=== PATIENT | male | born 1990 | race Caucasian/White ===

== ENCOUNTER 2023-06-07 15:13 | Emergency (ER) | payer OTHER ==
[2023-06-07] MEDS ORDERED: Lidocaine 1% with EPINEPHrine 1:100,000 50 ML MDV SUBCUT STA (15:53)
[2023-06-07] MEDS ORDERED: Bacitracin Oint 1 GM U/D Packet TOP ONE (15:53)
== END 2023-06-07 16:59 | disposition home or self-care (01) ==
LOC: JP.ED 15:13
DX: S61.452A Open bite of left hand, initial encounter (principal); S61.412A Laceration without foreign body of left hand, initial encounter; F17.210 Nicotine dependence, cigarettes, uncomplicated; W54.0XXA Bitten by dog, initial encounter
CPT/HCPCS: 12001; 99283